=== PATIENT | female | born 1945 | race Caucasian/White ===

== ENCOUNTER 2016-11-17 20:15 | Emergency (ER) | payer MEDICARE ==
[2016-11-17 20:37] VITALS: BP 146/94
[2016-11-17] MEDS ORDERED: ORPHENADRINE CITRATE 30 MG/ML VIAL IM ONE (21:46)
--- NOTE | 2016-11-17 21:47 | ERNOTE ---
Back Pain ER HPI Presenting Symptoms: injury/pain to back, hx chronic back pain Time Seen by Provider: 11/17/16 21:35 Source: patient, family Exam Limitations: no limitations Immunizations: IMMUNIZATION HX Immunizations Up to Date Yes History of Influenza Vaccine No Hx Pneumococcal Vaccination No Allergies/Adverse Reactions: Allergies No Known Allergies Allergy (Unverified 08/11/16 11:42) Home Medications: HOME MEDICATIONS Cyclobenzaprine HCl [Flexeril] 10 mg PO TID PRN 11/17/16 [Last Taken Unknown] traMADol HCL [Ultram] 50 mg PO QID PRN 11/17/16 [Last Taken Unknown] Narrative: Pt was bending and pulling in the garden today for about 30 minutes. about 1 hour later her back began to spasm. She attempted to take flexeril and tramadol but vomited soon after. Timing: Reports: getting worse Quality/Severity: Reports: moderate, severe Location of pain: Reports: lower back, no radiation Activities at Onset: Reports: activity Recent Injury?: Reports: yes Possible Precipitating Factor: Reports: lifting, turning/bending Review of Systems - Review of Systems Constitutional: Present: no symptoms reported EYE: Present: no symptoms reported ENT: Present: no symptoms reported Respiratory: Present: no symptoms reported Cardiology: Present: no symptoms reported Gastrointestinal/Abdominal: Present: no symptoms reported Genitourinary: Present: no symptoms reported Musculoskeletal: Present: See HPI Skin: Absent: rash Neurological: Absent: weakness, numbness, tingling - Patient's Past Medical History Patient History - Medical: No pertinent hx Patient History - Cardiac/Respiratory: No pertinent hx Patient History - Cancer: Ovarian Patient History - Surgical Procedures: Colonoscopy, Hysterectomy Patient History - Other: None - Social History Living Situations: spouse Abuse History: No History of abuse Psych History: No pertinent hx Smoking Status: Former smoker Have you smoked in the past 12 months: No Do you dip or chew tobacco: No Alcohol Use: none Drug Use: none - Immunizations Immunizations Up to Date: Yes Hx Pneumococcal Vaccination: No History of Influenza Vaccine: No Physical Exam - Physical Exam General Appearance: Present: wd/wn, alert, mild distress Ears, Nose, Throat: Present: normal ENT inspection, hearing grossly normal Neck: Present: normal inspection, nontender Respiratory: Present: no respiratory distress, no accessory muscle use Back Exam: Present: no vertebral tenderness, muscle spasm - with tenderness of the muscles Extremity Exam: Present: normal inspection, non-tender, no edema, normal range of motion Neurological Exam: Present: alert, oriented, normal mood/affect, no motor/ sensory deficits Skin Exam: Present: normal color, warm/dry ED Progress - Vital Signs Vital Signs: Vital Signs 11/17/16 20:25 Temperature 37.5 C Pulse Rate 96 Respiratory 16 Rate Blood Pressure 146/94 O2 Sat by Pulse 97 Oximetry - Progress/Reassessment Chief Complaint: Back Pain Progress:: Improved Progress Note-Subjective: 11/17/16 22:44 Less muscle spasm, having some SI area pain. Ordered nubain and zofran. Pt would like to go home as soon as possible. Departure Clinical Impression: Muscle spasm of back Lumbar strain Qualifiers: Encounter type: initial encounter Qualified Code(s): S39.012A - Strain of muscle, fascia and tendon of lower back, initial encounter - Departure Disposition: Home self-care Condition: Good Instructions: Cryotherapy, [id number] Additional Instructions: you may take your regular pain meds and muscle relaxers in 6 hours if needed Referrals: Agueda Pearce DO [Primary Care Provider] -
[2016-11-17] MEDS ORDERED: ORPHENADRINE CITRATE 30 MG/ML VIAL ONE (21:48)
[2016-11-17] MEDS ORDERED: ONDANSETRON HCL/PF 2 MG/ML VIAL IV ONE (22:43)
[2016-11-17] MEDS ORDERED: NALBUPHINE HCL 20 MG/ML AMPUL IV ONE (22:43)
--- OUTSIDE RECORDS SUMMARY | 2016-11-17 22:53 | XMS REPORT | Continuity of Care Document ---
:1945 Author Organization [facility] ([facility]) [place] [address] Phone [phone] Care Team Providers Name Role Phone Provider, No-Primary Care Primary Care Provider Unavailable Source Comments This disclosure is being made pursuant to the Care Everywhere program, applicable federal and state laws, and may not contain all informaitonavailable regarding this patient.[facility] ([facility]) Active Allergies and Adverse Reactions Not on File Current Medications Not on file Active Problems Not on file Social History Tobacco Use Types Packs/Day Years Used Date Never Assessed Plan of Care Health Maintenance Due Date Last Done Comments HCV Screening 1945 Hepatitis B Vaccine (1 of 3 - Primary Series) 1945 Tdap Vaccine 1958 Lipid Disorder Screening 1965 Td Vaccine 1965 Mammogram 1987 Colonoscopy 11/21/1997 Zoster Vaccine 2007 Osteoporosis Screening (DXA Bone Density) 2012 Pneumococcal Vaccine (1 of 2 - PCV13) 2012 Influenza Vaccine: Seasonal (#1) 05/02/2016 Results from Last 3 Months Not on file
[2016-11-17] MEDS ORDERED: ONDANSETRON HCL/PF 2 MG/ML VIAL ONE (23:13)
[2016-11-17] MEDS ORDERED: NALBUPHINE HCL 20 MG/ML AMPUL ONE (23:14)
== END 2016-11-18 00:15 | disposition home or self-care (01) ==
LOC: ER 20:15
DX: S39.012A Strain of muscle, fascia and tendon of lower back, initial encounter (principal); Y93.H2 Activity, gardening and landscaping

== ENCOUNTER 2016-11-29 13:18 | Inpatient (IN) | payer MEDICARE, OTHER ==
[2016-11-29 13:50] LABS: Urine Bilirubin 3 mg/dl (NEGATIVE); Urine Blood 250 /ul (NEGATIVE); Urine Ketone Negative (NEGATIVE); Urine Protein >=300 mg/dL (NEGATIVE); Urine Urobilinogen Normal (NORMAL); Urine pH 5.5 pH (5.0-7.0)
[2016-11-29 13:55] LABS: Urine Appearance Turbid; Urine Bacteria 2+; Urine Color Dark Yellow; Urine Nitrite Positive (NEGATIVE); Urine RBC >50 /hpf (0-5); Urine WBC >50 /hpf (0-5)
[2016-11-29] MEDS ORDERED: NORMAL SALINE 1,000 ML IV PRN (14:52)
[2016-11-29] MEDS ORDERED: HEPARIN SODIUM,PORCINE 5,000 UNITS/ML VIAL SC SCH (15:00)
[2016-11-29] MEDS ORDERED: NORMAL SALINE 1,000 ML IV ONE ×2 (15:16→17:49)
[2016-11-29 15:18] LABS: Hematocrit 36.9 % (37.0-47.0); Hemoglobin 11.5 gm/dL (12.5-16.0); Mean Corpuscular Hgb Conc 31.2 g/dl (32-36); Mean Platelet Volume 9.2 fl (6.0-9.5); Neutrophil # 11.1 K/mm3 (1.3-6.0); Neutrophil % 79.5 % (42-75.0); Platelet Count 709 K/mm3 (150-450); Red Cell Distribution Width 14.5 % (11.5-14.0)
[2016-11-29 15:27] LABS: Anion Gap 20.1 mmol/L (6.8-13.8); BUN/Creatinine Ratio 11.6 (9.0-21.6); Carbon Dioxide 22.3 mmol/L (24-32.6); Estimated Creat Clear 12.6; Potassium 6.4 mmol/L (3.4-4.6)
[2016-11-29 16:01] VITALS: BP 137/59
--- OUTSIDE RECORDS SUMMARY | 2016-11-29 16:06 | XMS REPORT | Continuity of Care Document ---
:1945 Author Organization [facility] ([facility]) [place] [address] Phone [phone] Care Team Providers Name Role Phone Provider, No-Primary Care Primary Care Provider Unavailable Source Comments This disclosure is being made pursuant to the Care Everywhere program, applicable federal and state laws, and may not contain all informaitonavailable regarding this patient.[facility] ([facility]) Active Allergies and Adverse Reactions Not [...]
--- NOTE | 2016-11-29 17:21 | HP ---
Chief Complaint - Chief Complaint Date of Service: 11/29/16 Time of Service: 01:00 Chief Complaint: Back pain History of Present Illness: Patient seen in clinic for ER follow-up on 11.24.2016 with complaints of back pain. No known injury. Further work-up ordered including with UA, lumbar x-ray and lumbar spine MRI ended up revealing multiple large renal calculi and UTI. BMP results returned which showed ARF with a creatinine of 3.8. Patient was admitted for IV antibiotics and IVFs. Approximately 10 minutes after the patient was admitted, I received a call from our radiologist regarding the patient's lumbar spine MRI that she completed earlier today and he states there is a partially visualized right perinephric fluid collection. I discussed the case with Dr. Portillo who is a urologist that comes to our hospital once a week and he states that without a known injury and her large calculi and UTI, it is most likely a collection of pus and a drain needs to be placed by IR. Unfortunately, we do not have IR available at our facility and he recommended transfer to the [facility]. The patient will be transferred to one of the ICUs at the [facility] for further evaluation and management. 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" Patient History - Cardiac/Respiratory: No pertinent hx Patient History - Cancer: Ovarian Patient History - Surgical Procedures: Colonoscopy - 35 years ago, Hysterectomy Patient History - Other: None - Family History Sister Family History - Cardiac/Respiratory: Atrial Fibrillation Mother Family History - Medical: , Other - Parkinson's disease Father Family History - Medical: Family History - Cardiac/Respiratory: Atrial Fibrillation Family History - Cancer: Prostate - Social History Living Situations: home Abuse History: No History of abuse Psych History: No pertinent hx Smoking Status: Former smoker Have you smoked in the past 12 months: No Do you dip or chew tobacco: No Alcohol Use: none Drug Use: none - Immunizations Immunizations Up to Date: No Hx Pneumococcal Vaccination: No History of Influenza Vaccine: No Review Of Systems (GEN) - Review of Systems Generalized/Overall Review: Present: Weakness, Chills, Fatigue. Absent: Fever EENTM: Present: No Symptoms Reported Respiratory: Present: No Symptoms Reported Cardiac: Present: No Symptoms Reported Abdominal: Present: Nausea Genitourinary: Present: Burning, Urgency, Frequency, Hematuria, Dysuria Musculoskeletal: Present: Back Pain Neurological: Present: No Symptoms Reported Skin: Present: No Symptoms Reported Endocrine: Present: No Symptoms Reported Misc: All systems neg except as marked Immunizations: IMMUNIZATION HX Immunizations Up to Date Yes History of Influenza Vaccine No Hx Pneumococcal Vaccination No Allergies/Adverse Reactions: Allergies Allergy/AdvReac Type Severity Reaction Status Date / Time No Known Allergies Allergy Unverified 08/11/16 11:42 Home Medications: HOME MEDICATIONS Cyclobenzaprine HCl [Flexeril] 10 mg PO TID PRN 11/17/16 [Last Taken Unknown] Acetaminophen [Tylenol] 650 mg PO Q4H PRN 11/29/16 [Last Taken Unknown] Duloxetine HCl [Cymbalta] 30 mg PO DAILY 11/29/16 [Last Taken Unknown] Exam - Exam Vital Signs: Vital Signs - Last Taken Temp 36.7 C 11/29/16 14:52 Pulse 97 11/29/16 14:52 Resp 20 11/29/16 14:52 BP 137/59 11/29/16 14:52 Pulse Ox 99 11/29/16 14:52 Constitutional: Present: Alert, Oriented x3, Cooperative, Well developed, Well nourished, Acute distress - Secondary to back pain ENT Exam: Present: hearing grossly normal, dry mucous membranes Eye Exam: bilateral eye: normal inspection, PERRL, EOMI Back Exam: Present: normal inspection, no vertebral tenderness, CVA tenderness ( R) - CVA tenderness R>L, CVA tenderness (L), muscle spasm - Lumbar and lower thoracic paraspinal muscle spasm present Respiratory: Present: lungs clear, normal breath sounds, no respiratory distress , no accessory muscle use Cardiovascular/Chest: Present: regular rate, rhythm, no edema Abdomen: Present: soft, nondistended, no rebound tenderness, CVA tenderness. Absent: guarding, rigidity Extremity: Present: normal range of motion, normal inspection, no pedal edema Skin Exam: Present: normal color, warm/dry Neurologic: Present: no motor/sensory deficits, alert, normal mood/affect, oriented x 3 Appearance: Present: appropriate appearance, appropriate insight, neat, no memory impairment Eye contact: Present: cooperative, good eye contact, normal speech Thoughts: Present: normal thought pattern, no apparent hallucination Diagnostic Studies: Abnormal Lab Results 11/29/16 11/29/16 11/29/16 Range/Units 12:45 15:10 15:10 WBC 14.0 H (4.0-10.5) K/mm3 RBC 4.10 L (4.2-5.4) M/mm3 Hgb 11.5 L (12.5-16.0) gm/dL Hct 36.9 L (37.0-47.0) % MCHC 31.2 L (32-36) g/dl RDW 14.5 H (11.5-14.0) % Plt Count 709 H (150-450) K/mm3 Immature Gran % (Auto) 1.10 H (0.001-0.429) % Immature Gran # (Auto) 0.15 H (0.000-0.0310) K/mm3 Neutrophils % 79.5 H (42-75.0) % Lymphocytes % 14.2 L (20-51) % Neutrophils # 11.1 H (1.3-6.0) K/mm3 Potassium 6.4 H D (3.4-4.6) mmol/L Carbon Dioxide 22.3 L (24-32.6) mmol/L Anion Gap 20.1 H (6.8-13.8) mmol/L BUN 44 H (3-23) mg/dL Creatinine 3.80 H D (0.4-1.4) mg/dL Est GFR (Non-Af Amer) 13 L D (60-130) mL/min Random Glucose 148 H (70-110) mg/dL Urine Protein >=300 H (NEGATIVE) mg/dL Urine Blood 250 H (NEGATIVE) /ul Urine Nitrate Positive H (NEGATIVE) Urine Bilirubin 3 H (NEGATIVE) mg/dl Prot Sulfosalicylic Acd 4+ H (0) mg/dL Ur Leukocyte Esterase 500 H (NEGATIVE) /ul Urine RBC >50 H (0-5) /hpf Urine WBC >50 H (0-5) /hpf Ur Epithelial Cells 5-10 H (0-5) /hpf Urine Bacteria 2+ H (NONE) Laboratory Results WBC 14.0 K/mm3 (4.0-10.5) H 11/29/16 15:10 RBC 4.10 M/mm3 (4.2-5.4) L 11/29/16 15:10 Hgb 11.5 gm/dL (12.5-16.0) L 11/29/16 15:10 Hct 36.9 % (37.0-47.0) L 11/29/16 15:10 MCV 90.0 fl (78-100) 11/29/16 15:10 MCH 28.0 pg (27-31) 11/29/16 15:10 MCHC 31.2 g/dl (32-36) L 11/29/16 15:10 RDW 14.5 % (11.5-14.0) H 11/29/16 15:10 Plt Count 709 K/mm3 (150-450) H 11/29/16 15:10 MPV 9.2 fl (6.0-9.5) 11/29/16 15:10 Immature Gran % (Auto) 1.10 % (0.001-0.429) H 11/29/16 15:10 Immature Gran # (Auto) 0.15 K/mm3 (0.000-0.0310) H 11/29/16 15:10 Neutrophils % 79.5 % (42-75.0) H 11/29/16 15:10 Lymphocytes % 14.2 % (20-51) L 11/29/16 15:10 Monocytes % 4.5 % (0.0-9) 11/29/16 15:10 Eosinophils % 0.4 % (0.0-3.0) 11/29/16 15:10 Basophils % 0.3 % (0.0-1.0) 11/29/16 15:10 Nucleated RBC % 0.0 k/mm3 (0-1) 11/29/16 15:10 Neutrophils # 11.1 K/mm3 (1.3-6.0) H 11/29/16 15:10 Lymphocytes # 2.0 k/mm3 (1.5-3.5) 11/29/16 15:10 Monocytes # 0.6 k/mm3 (0.0-1.0) 11/29/16 15:10 Eosinophils # 0.1 k/mm3 (0.0-0.7) 11/29/16 15:10 Absolute Basophils 0.0 k/mm3 (0.0-0.1) 11/29/16 15:10 Sodium 136 mmol/L (132-142) 11/29/16 15:10 Plasma Sodium 137 mmol/L (130-142) 11/29/16 15:10 Potassium 6.4 mmol/L (3.4-4.6) H D 11/29/16 15:10 Chloride 100 mmol/L (97-106) 11/29/16 15:10 Carbon Dioxide 22.3 mmol/L (24-32.6) L 11/29/16 15:10 Anion Gap 20.1 mmol/L (6.8-13.8) H 11/29/16 15:10 BUN 44 mg/dL (3-23) H 11/29/16 15:10 Creatinine 3.80 mg/dL (0.4-1.4) H D 11/29/16 15:10 Est GFR (Non-Af Amer) 13 mL/min (60-130) L D 11/29/16 15:10 BUN/Creatinine Ratio 11.6 (9.0-21.6) 11/29/16 15:10 Random Glucose 148 mg/dL (70-110) H 11/29/16 15:10 Calcium 10.0 mg/dL (7.9-10.9) 11/29/16 15:10 Urine Color Dark yellow 11/29/16 12:45 Urine Appearance Turbid 11/29/16 12:45 Urine pH 5.5 pH (5.0-7.0) 11/29/16 12:45 Ur Specific [place] 1.020 SP.GR. (1.005-1.010) 11/29/16 12:45 Urine Protein >=300 mg/dL (NEGATIVE) H 11/29/16 12:45 Urine Glucose (UA) Negative mg/dL (NEGATIVE) 11/29/16 12:45 Urine Ketones Negative mg/dL (NEGATIVE) 11/29/16 12:45 Urine Blood 250 /ul (NEGATIVE) H 11/29/16 12:45 Urine Nitrate Positive (NEGATIVE) H 11/29/16 12:45 Urine Bilirubin 3 mg/dl (NEGATIVE) H 11/29/16 12:45 Urine Ictotest Negative (NEGATIVE) 11/29/16 12:45 Prot Sulfosalicylic Acd 4+ mg/dL (0) H 11/29/16 12:45 Urine Urobilinogen Normal EU/dl (NORMAL) 11/29/16 12:45 Ur Leukocyte Esterase 500 /ul (NEGATIVE) H 11/29/16 12:45 Urine RBC >50 /hpf (0-5) H 11/29/16 12:45 Urine WBC >50 /hpf (0-5) H 11/29/16 12:45 Ur Epithelial Cells 5-10 /hpf (0-5) H 11/29/16 12:45 Urine Bacteria 2+ (NONE) H 11/29/16 12:45 Urine Culture Comments Culture to follow 11/29/16 12:45 Assessment/Plan - Narrative Narrative: Transfer to outside facility [facility] for further evaluation and treatment by urology and IR for drain placement. Continue aggressive IVF hydration. Continue IV antibiotics. Calcium gluconate, insulin and D50 given for hyperkalemia. Patient hemodynamically stable for transfer. - Assessment/Plan (1) ARF (acute renal failure) Problem: Acute (2) UTI (urinary tract infection) Problem: Acute (3) Pyelonephritis Problem: Acute (4) Perinephric fluid collection Problem: Acute (5) Leukocytosis Problem: Acute (6) Hyperkalemia Problem: Acute (7) Renal calculi Problem: Acute
[2016-11-29] MEDS ORDERED: CALCIUM GLUCONATE 4.65 MEQ/10 ML VIAL IV ONE (17:52)
[2016-11-29] MEDS ORDERED: DEXTROSE 50%-WATER 50 ML SYRG IV ONE (17:54)
[2016-11-29] MEDS ORDERED: INSULIN REGULAR, HUMAN 100 UNITS/ML VIAL IV ONE (17:54)
--- NOTE | 2016-11-29 18:50 | DS ---
Transfer Discharge Summary - Diagnosis(s)/Problems (1) ARF (acute renal failure) Problem: Acute (2) UTI (urinary tract infection) Problem: Acute (3) Pyelonephritis Problem: Acute (4) Perinephric fluid collection Problem: Acute (5) Leukocytosis Problem: Acute (6) Hyperkalemia Problem: Acute (7) Renal calculi Problem: Acute - Course Description of Stay: Please see admission H&P for details. Patient will be transferred to the [facility] for further evaluation and management. Procedures Performed: none - Results and Findings Results and Findings: Laboratory Results - last 24 hr 11/29/16 11/29/16 11/29/16 12:45 15:10 15:10 WBC 14.0 H RBC 4.10 L Hgb 11.5 L Hct 36.9 L MCV 90.0 MCH 28.0 MCHC 31.2 L RDW 14.5 H Plt Count 709 H MPV 9.2 Immature Gran % (Auto) 1.10 H Immature Gran # (Auto) 0.15 H Neutrophils % 79.5 H Lymphocytes % 14.2 L Monocytes % 4.5 Eosinophils % 0.4 Basophils % 0.3 Nucleated RBC % 0.0 Neutrophils # 11.1 H Lymphocytes # 2.0 Monocytes # 0.6 Eosinophils # 0.1 Absolute Basophils 0.0 Sodium 136 Plasma Sodium 137 Potassium 6.4 H D Chloride 100 Carbon Dioxide 22.3 L Anion Gap 20.1 H BUN 44 H Creatinine 3.80 H D Est GFR (Non-Af Amer) 13 L D BUN/Creatinine Ratio 11.6 Random Glucose 148 H Calcium 10.0 Urine Color Dark yellow Urine Appearance Turbid Urine pH 5.5 Ur Specific [place] 1.020 Urine Protein >=300 H Urine Glucose (UA) Negative Urine Ketones Negative Urine Blood 250 H Urine Nitrate Positive H Urine Bilirubin 3 H Urine Ictotest Negative Prot Sulfosalicylic Acd 4+ H Urine Urobilinogen Normal Ur Leukocyte Esterase 500 H Urine RBC >50 H Urine WBC >50 H Ur Epithelial Cells 5-10 H Urine Bacteria 2+ H Urine Culture Comments Culture to follow - Medications Medications: Active Medications Ceftriaxone Sodium 2,000 mg/ (Dextrose/Water) 100 mls @ 200 mls/hr IV Q24H IVON PRN Reason: Protocol Stop: 12/29/16 15:16 Last Admin: 11/29/16 16:47 Dose: 200 mls/hr Discontinued Medications Heparin Sodium (Porcine) (Heparin Sodium) 5,000 units SC Q12H IVON Stop: 12/29/16 15:01 Last Admin: 11/29/16 16:31 Dose: Not Given Sodium Chloride (Sodium Chloride 0.9%) 1,000 mls @ 999 mls/hr IV .Q1H1M ONE Stop: 11/29/16 16:16 Last Admin: 11/29/16 15:55 Dose: 999 mls/hr Sodium Chloride (Sodium Chloride 0.9%) 1,000 mls @ 999 mls/hr IV .Q1H1M ONE Stop: 11/29/16 18:49 Last Admin: 11/29/16 18:08 Dose: 999 mls/hr - Disposition Disposition: [facility] Condition: Fair Discharge Date: 11/29/16 Discharge Time: 18:50
[2016-11-29] MEDS ORDERED: NORMAL SALINE IV SCH ×2 (19:00→19:15)
[2016-11-29] MEDS ORDERED: CALCIUM GLUCONATE IV SCH ×2 (19:00→19:15)
== END 2016-11-29 19:30 | disposition short-term general hospital (02) | DRG 683 ==
LOC: LAB 13:18 → MS 14:51
PROVIDERS: ADMIT Internal Medicine; ATTEND Internal Medicine
DX: N17.8 Other acute kidney failure (principal); N39.0 Urinary tract infection, site not specified; N20.0 Calculus of kidney; R39.89 Other symptoms and signs involving the genitourinary system; E87.5 Hyperkalemia; D72.829 Elevated white blood cell count, unspecified; Z87.891 Personal history of nicotine dependence; Z85.43 Personal history of malignant neoplasm of ovary

== ENCOUNTER 2017-03-10 10:09 | Day surgery (SDC) | payer MEDICARE, OTHER ==
[~2017-03-10 10:09] MED LIST: RINGERS SOLUTION,LACTATED 1,000 ML IV PRN
--- OUTSIDE RECORDS SUMMARY | 2017-03-10 10:13 | XMS REPORT | Continuity of Care Document ---
:1945 Author Organization [facility] ([facility]) Address [address] [place] [address] Phone [phone] Care Team Providers Name Role Phone Agueda Pearce Primary Care Provider [phone] Source Comments This disclosure is being made pursuant to the Care Everywhere program, applicable federal and state laws, and may not contain all informaitonavailable regarding this patient.[facility] ([facility]) Active Allergies and Adverse Reactions No Known Allergies Current Medications Prescription Sig. Disp. Refills Start Date End Date Status DULoxetine 30 mg XR Take 30 mg by mouth Active capsule daily. acetaminophen 325 mg Take 650 mg by Active tablet mouth every 4 hours as needed. sodium chloride 0.9 % 10 mL daily. Into 1000 mL 1 12/02/2016 Active injection syringe each nephrostomy tube daily sodium chloride 0.9 % Flush each catheter 300 mL 11 12/16/2016 Active injection syringe with 10 ml normal saline 3 times weekly, push only. oxyCODONE-acetaminoph Take 1-2 tablets by 40 tablet 0 01/19/2017 Active en 5-325 mg per mouth every 4 hours tablet as needed. Do NOT exceed 4000 mg of acetaminophen per 24 hours. ondansetron 4 mg Take 2 tablets (8 30 tablet 1 01/20/2017 Active disintegrating tablet mg total) by mouth every 8 hours as needed for Nausea/Vomiting. Active Problems Problem Noted Date Nephrolithiasis 01/19/2017 Kidney stone 01/18/2017 Sepsis 11/29/2016 Most Recent Encounters Date Type Specialty Providers Description 03/03/2017 Telephone Urology Fish Garcia, Chief Comp: Results 03/02/2017 Surgery Radiology Radiologist, Canceled IR Rad Invasive NEPHROSTOMY TUBE CHECK & CHANGE 01/27/2017 Hospital Radiology Fish Garcia, Chief Comp: Patient Encounter MD Reported Reason For Visit 01/27/2017 Office Visit Urology Tye, Dx: Nephrolithiasis Santy Don MD (Primary Dx) Fish Garcia MD 01/23/2017 Nurse Triage Care Coordination Shanti Menjivar Chief Comp: IP Francine Don RN Follow-up Call 01/18/2017 Surgery Radiology Andrés Knight Ir Nephrostomy Tube T, Placement Bilateral 01/18/2017 Surgery Urology Fish Garcia, PERCUTANEOUS NEPHROSTOLITHOTOMY (GT 75MIN) 01/10/2017 Telephone Urology Evelyn Narayan PA-C 01/09/2017 Anesthesia Event Urology Beatriz Pop RN 01/04/2017 Orders/Notes Urology Evelyn Narayan PA-C 01/04/2017 Telephone Urology Evelyn Narayan Chief Comp: Request for A, PA-C Prescription 01/04/2017 Orders/Notes Urology Evelyn Narayan Dx: Acute cystitis A, PA-C without hematuria (Primary Dx) 01/02/2017 Telephone Internal Medicine Mona Gilliam, - Primary RACK WASHER 01/02/2017 Orders/Notes Internal Medicine Mona Gilliam, Dx: Low hemoglobin - Primary RACK WASHER (Primary Dx) 12/30/2016 Office Visit Pathology Evelyn Narayan Chief Comp: Patient A, PA-C Reported Reason For Lab Services, Visit Irl 12/30/2016 Office Visit Internal Medicine Torres Salazar, Chief Comp: Patient - Primary MD Reported Reason For Mona Gilliam, Visit RACK WASHER 12/30/2016 Hospital Radiology Brian Croft, Dx: Sepsis, due to Encounter MD unspecified organism 12/30/2016 Office Visit Urology Fish Garcia, Dx: Hx: UTI (urinary MD tract infection) Evelyn Narayan (Primary Dx) A, PA-C 12/16/2016 Telephone Radiology Irma Thomas Chief Comp: Patient L, RN Concern 12/16/2016 Orders/Notes Radiology Arpit Alonso Dx: Flush (Primary Dx) C, PA-C 12/16/2016 Telephone Radiology Wendi Edwards Chief Comp: Patient L, RN Concern 12/12/2016 Telephone Radiology Jason Chief Comp: Follow-up RONNA Bardales 12/10/2016 Telephone Radiology Arpit Alonso Chief Comp: Advice Only ABI Fields 12/10/2016 Telephone Patient Services Magdalena Tran Chief Comp: Advice Only RONNA Jones 12/09/2016 Telephone Radiology Arpit Alonso Chief Comp: Advice Only ABI Fields Social History Tobacco Use Types Packs/Day Years Used Date Former Smoker Cigarettes 0.25 15 Quit: 10/02/1991 Smokeless Tobacco: Never Used Tobacco Cessation:Counseling Given: No Comments: Alcohol Use Drinks/Week oz/Week Comments No 0 Standard drinks or equivalent 0.0 Last Filed Vital Signs Vital Sign Reading Time Taken Blood Pressure 123/80 01/27/2017 2:58 PM CDT Pulse 70 01/27/2017 2:58 PM CDT Temperature 36.2 C (97.2 F) 01/27/2017 2:58 PM CDT Respiratory Rate 16 01/20/2017 10:54 AM CDT Height 1.651 m (5' 5") 01/18/2017 8:00 PM CDT Weight 80.74 kg (178 lb) 01/18/2017 8:00 PM CDT Body Mass Index 29.62 01/18/2017 8:00 PM CDT Oxygen Saturation 91% 01/20/2017 8:00 AM CDT Plan of Care Date Type Specialty Providers Description 04/21/2017 Appointment Urology Fish Garcia MD Chief Comp: Patient [address] [facility] [place] [address] Visit [phone] (Fax) 04/21/2017 Appointment Internal Medicine - Torres Salazar MD [address] [place] [address] [phone] (Fax) Chief Comp: Patient Primary Mona Gilliam ARNP [address] [place] [address] [phone] (Fax) Reported Reason For Visit Health Maintenance Due Date Last Done Comments HCV Screening 1945 Hepatitis B Vaccine (1 of 3 - Primary Series) 1945 Tdap Vaccine 1958 Lipid Disorder Screening 1965 Td Vaccine 1965 Mammogram 1987 Colonoscopy 11/21/1997 Zoster Vaccine 2007 Osteoporosis Screening (DXA Bone Density) 2012 Pneumococcal Vaccine (1 of 2 - PCV13) 2012 Influenza Vaccine: Seasonal (Season Ended) 2017 Procedures from Last 3 Months Procedure Name Priority Date/Time Associated Comments Diagnosis OR CASE Routine 01/26/2017 12:07 Kidney stone Results for this PM CDT procedure are in the results section. 01/18/2017 10:52 Kidney stone AM CDT PERCUTANEOUS 01/18/2017 10:52 Kidney stone NEPHROSTOLITHOTOMY (GT AM CDT 75MIN) 01/18/2017 10:52 Kidney stone AM CDT Results from Last 3 Months REQUEST FOR STONE ANALYSIS AT [facility] (01/27/2017 4:29 PM) Component Value Range Request for Stone Analysis at [facility] Comment: Laboratory Order for Stone Analysis at [facility] has been received in [facility] requisition has been completed and faxed to [facility] on 01/27/2017. Specimen Urine FL< 1 HOUR (DONE IN UROLOGY CLINIC) (01/27/2017 4:00 PM)Only the most recent of2 resultswithin the time period is included. OR CASE (01/26/2017 12:07 PM) Narrative Fish Garcia MD 01/26/2017 12:07 PM Post-Op Procedure Note Operation/Procedure: Bilateral Percutaneous Nephrolithotripsy >2cm on right, and <2 cm on left Bilateral Antegrade Nephrostograms and interpretation Renal drainage tube placement Removal of nephrostomy tube under fluroscopy General Information: Date: 01/18/17 Time: 1052 Location: UROLOGY OR OR Room: UROLOGY OR 1 Service: Urology Log ID: [id number] Surgeon: Surgeon(s) and Role: * Fish Garcia MD - Primary * Eder Love MD - Resident - Assisting Staff Information: Circulating Nurse: Selena Mendoza RN; Jennyfer Roberson RN Systems Integration Manager- Scrub: Johnny Wise Anesthesia: General Findings: Bilateral nephrolithiasis, right side approximately 3 cm, left side 1 cm largest stone Blood Loss: 400* ml Tourniquet Time: * No tourniquets in log * Implants: * No implants in log * Specimens: ID Type Source Tests Collected by Time Destination 1 : Right Renal Stone Tissue fresh Fish Garcia MD 01/18/2017 1421 Pathology 1 : Right renal stone culture Aerobic Anaerobic Culture Fish Garcia MD 01/18/2017 145 Microbiology Complications: None, patient tolerated the procedure well Condition: Stable Operative Report Completion Indications: Payton Kothari is a 71 y.o. female with bilateral nephrolithiasis with subsequent JUAN, and Klebsiella pyelonephritis s/p bilateral percutaneous nephrostomy tube placement to undergo percutaneous nephrostolithotomy today. She has taken ciprofloxacin, linezolid, and fluconazole as prescribed. Procedure Details: After informed consent was obtained the patient was brought to the operating room and general endotracheal anesthesia was induced. Antibiotic therapy was initiated prior to the procedure. The patient and procedure were properly identified in a time-out. A Amaro catheter was advanced into the bladder and the balloon inflated with 10 cc of water. The patient was then placed in the prone position on the operating room table with all pressure points adequately padded. The right percutaneous nephrostomy tube and surrounding skin were prepped and draped in standard sterile fashion. The percutaneous nephrostomy tube was used to advance a super-stiff wire into the renal collecting system and down into the bladder. The percutaneous nephrostomy tube was removed and the skin incised over the wire. Using a 8-10 dilator, an Amplatz stiff guidewire was advanced alongside the other wire. The dilator was withdrawn to the edge of the collecting system and an antegrade nephrostogram was performed by injected contrast through the dilator with results as below. The super-stiff guidewire was affixed to the drapes as a safety wire. The dilating balloon was advanced over the guidewire and the tract into the collecting system was dilated up to 30 atmospheres under fluoroscopic guidance using contrast to inflate the balloon. A sheath was advanced over the balloon into the collecting system. The dilating balloon was withdrawn and a rigid nephroscope was advanced through the sheath into the renal pelvis. A survey of the collecting system revealed a large renal stone measuring approximately 3 cm in the renal pelvis. Using the ultrasound probe, the stone was fragmented and the pieces suctioned. Using a combination of the rigid nephroscope and flexible nephroscope with a stone basket and the ultrasound probe, the remaining visible fragments were fragmented and removed from the collecting system and ureter. After removal of all visible stone, a 22 [place] Ke[place]-tip catheter was then advanced into the renal pelvis over the remaining wire and its position in the pelvis confirmed using fluoroscopy. The access sheath was then cut and removed. 3 cc of sterile sale were used to inflate the balloon of the Keween[place]-tip catheter. The percutaneous catheter was then sutured in place and a sterile dressing was applied. Under fluorsoscopy existing nephrostomy tube was removed. Tube was cut to break suture, and then under live fluro imaging it was removed and the draining catheter was not disturbed. The dressing's were then taken down and attention was then turned to the left, patient was then reprepped and draped and the percutaneous nephrostomy tube and surrounding skin were prepped and draped in standard sterile fashion. The percutaneous nephrostomy tube was used to advance a super-stiff wire into the renal collecting system and down into the bladder. The percutaneous nephrostomy tube was removed and the skin incised over the wire. Using an 8-10 thai dilator an Amplatz stiff guidewire was advanced alongside the other wire. The dilator was withdrawn to the edge of the collecting system and an antegrade nephrostogram was performed by injected contrast through the 10 thai sheath with results as below. The super-stiff guidewire was affixed to the drapes as a safety wire. The dilating balloon was advanced over the guidewire and the tract into the collecting system was dilated up to 30 atmospheres under fluoroscopic guidance using contrast to inflate the balloon. A sheath was advanced over the balloon into the collecting system. The dilating balloon was withdrawn and a rigid nephroscope was advanced through the sheath into the renal pelvis. A survey of the collecting system revealed a 1 cm renal stone. Using the ultrasound probe, the stone was fragmented and the pieces suctioned. Using a combination of the rigid nephroscope and flexible nephroscope with a stone basket and the ultrasound probe, the remaining visible fragments were fragmented and removed from the collecting system and ureter. After removal of all visible stone, a 22 [place]-tip catheter was then advanced into the renal pelvis over the remaining wire and its position in the pelvis confirmed using fluoroscopy. The access sheath was then cut and removed. 3 cc of sterile sale were used to inflate the balloon of the Keween[place]-tip catheter. The percutaneous catheter was then sutured in place and a sterile dressing was applied. The patient tolerated the procedure well. There were no immediate complications. The patient was brought to the Post-Anesthesia Care Unit in stable condition Dr. Garcia and I independently reviewed the images and interpreted them as below Radiology Interpretation: Right Antegrade Nephrostogram: No extravasation of contrast, normal right ureter with passage of contrast down to the bladder. No filling defects. Left Antegrade Nephrostogram: No extravasation of contrast, normal left ureter without extravasation of contrast. Plan -Admit to the floor, 3RC -Cipro, linezolid, and fluconazole overnight -Likely discharge on three days of abx/antifungals -Nephrostomy and amaro to drainage overnight -Cap tube in the AM, remove Amaro -CT scan in the AM, Labs in the AM -Tube plan following CT Attending Attestation: I was present for and participated in the entire procedure. I have reviewed the images obtained during the procedure and agree with the findings as listed above. Fish Garcai MD Dyslexia Teacher Director of Minimally Invasive Surgery and Endourology Department of Urology Eder Love MD BASIC METABOLIC PANEL W/ CALCIUM (CHEM 8) (01/20/2017 8:06 AM)Only the most recent of3 resultswithin the time period is included. Component Value Range Sodium 140 135-145 mEq/L Potassium 4.5 3.5-5.0 mEq/L Chloride 106 95-107 mEq/L CO2 20(L) 22-29 mEq/L BUN 26(H) 10-20 mg/dL Creatinine 2.1(H)Comment: 0.5-1.0 mg/dL Creatinine switched to enzymatic method on 02/08/2011.GFR equation switched to IDMS-traceable MDRD equation on 02/08/2011. Calculated GFR values are not valid in clinical settings where serum creatinine is changing. Glucose 106(H)Comment: 65-99 mg/dL The Expert Committee on the Diagnosis and Classification of Diabetes has defined impaired fasting glucose as greater than or equal to 100 mg/dL but less than 126 mg/dL.(Diabetes Care 28 (Suppl 1)S41,2005) Calcium 8.5 8.5-10.5 mg/dL Anion Gap 14 mEq/L Calculated GFR 23(L) >60 mL/min/1.[address] ABDOMEN& PELVIS WO CONTRAST ([id number]) (01/19/2017 11:54 AM)Only the most recent of2 resultswithin the time period is included. Impressions Impression: 1. No residual stone burden in the right kidney. 2. Numerous small nonobstructing residual stones in the left kidney but stone burden has decreased since the prior exam. 3. Small nonobstructing distal left ureter stone. 4. Bilateral nephrostomy access catheters in place with expected postprocedural changes. 5. Moderate bilateral hydronephrosis with mild bilateral hydroureter. Narrative Procedure: CT ABDOMEN & PELVIS WO CONTRAST ([id number]) Clinical Indication: Evaluate residual stone after bilateral PCNL. History of kidney stones. Technique: CT exam of the abdomen and pelvis is performed without IV contrast. Comparison: CT abdomen and pelvis 12/30/2016. Interventional procedure 01/18/2017. Findings: The absence of IV contrast limits assessment of the solid organs, bowel, and vascular structures. Lower chest: Bibasilar atelectasis. Liver: Imaged liver normal. Bile ducts: Not dilated. Gallbladder: Vicarious excretion of contrast in the gallbladder. Pancreas: Fatty atrophy. Spleen: Calcified granulomas. 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 Adrenal glands: Normal Kidneys: Bilateral nephrostomy access catheters in place. Small bilateral retroperitoneal free fluid. Moderate bilateral hydronephrosis with retained contrast in the dilated renal collecting systems bilaterally. Iatrogenic induced air within the collecting systems bilaterally. At least 7 nonobstructing left renal stones remain, measuring between 1 and 2 mm. No definite right-sided stones are visualized. No definite stones seen on the right. Ureters: 2 mm stone in the distal left ureter at the level of the pelvic brim. No stones in the right ureter. Ureters are mildly dilated. Bladder: Air in the bladder likely iatrogenic. Aorta: Nonaneurysmal. Calcific atherosclerotic disease. Retroperitoneum: Small bilateral perinephric free fluid. No enlarged lymphadenopathy. Peritoneum: No ascites and no free air. Mesentery: Normal Stomach: Not distended. Small bowel: Not distended. Colon: Mild diverticulosis without diverticulitis. Appendix: Normal. Extraperitoneal pelvis: No lymphadenopathy. Uterus: Surgically absent Ovaries: No adnexal masses Abdominal wall: Normal Bones: Bilateral S2 sacral cysts. No bony destructive lesions. Procedure Note Henrique, Incoming Imaging Results - Agnieszka Jan 19, 2017 2:31 PM CDT Procedure: CT ABDOMEN & PELVIS WO CONTRAST ([id number]) Clinical Indication: Evaluate residual stone after bilateral PCNL. History of kidney stones. Technique: CT exam of the abdomen and pelvis is performed without IV contrast. Comparison: CT abdomen and pelvis 12/30/2016. Interventional procedure 01/18/2017. Findings: The absence of IV contrast limits assessment of the solid organs, bowel, and vascular structures. Lower chest: Bibasilar atelectasis. Liver: Imaged liver normal. Bile ducts: Not dilated. Gallbladder: Vicarious excretion of contrast in the gallbladder. Pancreas: Fatty atrophy. Spleen: Calcified granulomas. 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 Adrenal glands: Normal Kidneys: Bilateral nephrostomy access catheters in place. Small bilateral retroperitoneal free fluid. Moderate bilateral hydronephrosis with retained contrast in the dilated renal collecting systems bilaterally. Iatrogenic induced air within the collecting systems bilaterally. At least 7 nonobstructing left renal stones remain, measuring between 1 and 2 mm. No definite right-sided stones are visualized. No definite stones seen on the right. Ureters: 2 mm stone in the distal left ureter at the level of the pelvic brim. No stones in the right ureter. Ureters are mildly dilated. Bladder: Air in the bladder likely iatrogenic. Aorta: Nonaneurysmal. Calcific atherosclerotic disease. Retroperitoneum: Small bilateral perinephric free fluid. No enlarged lymphadenopathy. Peritoneum: No ascites and no free air. Mesentery: Normal Stomach: Not distended. Small bowel: Not distended. Colon: Mild diverticulosis without diverticulitis. Appendix: Normal. Extraperitoneal pelvis: No lymphadenopathy. Uterus: Surgically absent Ovaries: No adnexal masses Abdominal wall: Normal Bones: Bilateral S2 sacral cysts. No bony destructive lesions. IMPRESSION Impression: 1. No residual stone burden in the right kidney. 2. Numerous small nonobstructing residual stones in the left kidney but stone burden has decreased since the prior exam. 3. Small nonobstructing distal left ureter stone. 4. Bilateral nephrostomy access catheters in place with expected postprocedural changes. 5. Moderate bilateral hydronephrosis with mild bilateral hydroureter. CBC (COMPLETE BLOOD COUNT) (01/19/2017 7:08 AM)Only the most recent of2 resultswithin the time period is included. Component Value Range WBC Count 15.5(H) 3.7-10.5 K/MM3 RBC Count 3.17(L) 4.00-5.20 M/MM3 Hemoglobin 9.2(L) 11.9-15.5 g/dL Hematocrit 29(L) 35-47 % MCV (Mean Corpuscular Volume) 91 82-99 FL MCH (Mean Corpuscular Hemoglobin) 29 25-35 PG MCHC (Mean Corpuscular Hemoglobin Concentration) 32 32-36 % Platelet Count 156 150-400 K/MM3 MPV (Mean Platelet Volume) 9.9 9.4-12.3 FL RBC Dist Width-STD 52.5(H) 36.4-46.3 FL RBC Distrib Width 15.7(H) 9.0-14.5 % Nucleated RBC 0 /100 WBC Specimen Whole Blood HEMATOCRIT (01/18/2017 6:57 PM) Component Value Range Hematocrit 32(L) 35-47 % Specimen Whole Blood HEMOGLOBIN (01/18/2017 6:57 PM) Component Value Range Hemoglobin 9.9(L) 11.9-15.5 g/dL Specimen Whole Blood AEROBIC CULTURE, ROUTINE (01/18/2017 4:48 PM) Component Value Range Culture Moderate Vancomycin Resistant Enterococcus faecium(A)Comment: Synergy for gentamicin when combined with ampicillin or vancomycin Synergy for streptomycin when combined with ampicillin or vancomycin. Gram Stain No organisms or PMNs observed Specimen Culture - Tissue, specify Narrative Identification performed by MALDI-TOF mass spectrometry (MS).The performance characteristics of MALDI-TOF MS were determined by the [facility].It has not been cleared orApproved by the FDA. The FDA has determined that such clearance or approval is not necessary.This test is for clinical purposes. It should not be regarded as investigational or for research.The laboratory is certified under the Clinical Laboratory Improvement Amendments of 1988 (CLIA) as qualified to perform high complexity clinical laboratory testing. Organism Antibiotic Method Susceptibility Vancomycin Resistant Enterococcus AMPICILLIN >=32: Resistant faecium Vancomycin Resistant Enterococcus DAPTOMYCIN 2: Susceptible faecium Vancomycin Resistant Enterococcus GENTAMICIN HIGH LEVEL Susceptible faecium Vancomycin Resistant Enterococcus LINEZOLID 2: Susceptible faecium Vancomycin Resistant Enterococcus STREPTOMYCIN HIGH LEVEL Susceptible faecium Vancomycin Resistant Enterococcus VANCOMYCIN >=32: Resistant faecium STONE ANALYSIS (01/18/2017 4:37 PM) Component Value Range Calculi Mass 33 mg Calculi Number Numerous Calculi Size (mm) 1 to 4 mm Calculi Description See NoteComment: Specimen received bloody, not the preferred dry state.Bloody specimens often delay analysis. Specimen consists of numerous, small, brown/bravo, irregular calculi fragments. Calculi Composition See NoteComment: Calculi composed primarily of calcium oxalate monohydrate. INTERPRETIVE INFORMATION: Calculi (Stone) analysis Calculi are the products of physiological processes that yield crystalline compounds in a matrix of biological compounds and blood.Matrix components are not reported.The clinically significant crystalline components identified in calculi specimens are reported.Gross description may not be consistent with composition determined by FTIR analysis. Performed by [facility], [address] [place] [phone] [email or web address] Agent, Mauro Brewer MD, Lab. Director Specimen Calculus Narrative Specimen Source: Specimen Start Date: IR NEPHROSTOMY TUBE PLACEMENT BILATERAL (01/18/2017 12:09 PM) Impressions IMPRESSION: 1. Right: successful placement of 5 Fr JB1 catheter through inferior calyx with tip in the bladder. The existing PCN is in the upper pole calyx. 2. Left: successful placement of 5 Fr JB1 catheter in the inferior calyx with tip in the renal pelvis. Could not pass the catheter beyond the pelvic stone. Another JB1 catheter was placed through the middle calyx passes over the pelvic stone with tip in the bladder. The existing PCN within the renal pelvis through the upper calyx. Findings were discussed with Dr. Love via pager [phone] on 01/18/17. Narrative PROCEDURE: Bilateral percutaneous nephrostomy tube placement for PCNL access. CLINICAL INDICATION: 71 year old with hx of bilateral staghorn stones, right abscess vs subcapsular hematoma. Status post bilateral PCNs by Interventional Radiology on 11/30/16. Here for PCN placement for PCNL access. ACCESS: bilateral flank VESSELS INJECTED: None SPECIMENS COLLECTED: None CONTRAST:80 ml Isovue 370 in the collecting systems ANESTHESIA: 1% lidocaine MEDICATIONS:6 mg Versed IV, 300 mcg Fentanyl IV, 1 g Rocephin IV. PHYSICIANS: Dr. Knight DATA OFFICER: Dr. Sorto COMPLICATIONS:None immediate BLOOD LOSS:Minimal FLUORO TIME:31.7 min FLUORO DOSE:1058 mGy SEDATION START TIME: 1048 SEDATION STOP TIME: 1200 PROCEDURE: Informed consent was obtained after a detailed discussion outlining the risks, benefits, and alternatives to the procedure and after all of the patient's questions were answered. The patient was brought to the interventional suite and placed in the prone position. A formal timeout was performed. Both flanks were prepped and draped in usual sterile fashion. Right kidney: Contrast was injected through the existing PCN and nephrostogram was performed. This revealed nondilated collecting system and multiple stones. The PCN is intercostal course and concerning for transpleural placement. Existing PCN is in the superior calyx. The inferior pole of the right renal pelvis was accessed using a Chiba 22-gauge, 15 cm needle under fluoroscopic guidance. A nitinol wire was advanced through the Chiba needle into the proximal ureter. The Chiba needle was removed and an AccuStick catheter was advanced over the nitinol wire into the right renal pelvis. A small amount of contrast was injected and a nephrostogram was obtained demonstrating the catheter to be in the renal pelvis. The nitinol wire was removed and a Glidewire was advanced so that its tip was in the urinary bladder. The AccuStick catheter was exchanged over the wire for a STEPHEN-1 catheter, which was then advanced so that its tip was in the urinary bladder. The wire was removed. A real estate asset manager film was taken to document location of the STEPHEN-1 catheter and to rule out any immediate complications. The catheter was capped and sutured to the skin with 2-0 Silk. Procedure done under fluoroscopic guidance. Left kidney: Contrast was injected through the existing PCN and nephrostogram was performed. This revealed nondilated collecting system and multiple stones. The existing PCN passes through the upper pole to the renal pelvis. The inferior pole of the left renal pelvis was accessed using a Chiba 22-gauge, 15 cm needle under fluoroscopic guidance. A nitinol wire was advanced through the Chiba needle into the inferior calyx . The Chiba needle was removed and an AccuStick catheter was advanced over the nitinol wire into the inferior calyx and could not pass to the pelvis due to the pelvic stone. The nitinol wire was removed and a Glidewire was advanced and could not pass beyond the renal pelvic stone. The AccuStick catheter was exchanged over the wire for a STEPHEN-1 catheter, which was then advanced so that its tip was in the renal pelvis. The wire was removed. A real estate asset manager film was taken to document location of the STEPHEN-1 catheter and to rule out any immediate complications. The catheter was capped and sutured to the skin with 2-0 Silk. Procedure done under fluoroscopic guidance. The patient tolerated the procedure well. There were no complications. Dr. Knight performed the entire procedure. Dr. Sorto assisted. Procedure Note Henrique, Incoming Imaging Results - MonJan 18, 2017 2:49 PM CDT PROCEDURE: Bilateral percutaneous nephrostomy tube placement for PCNL access. CLINICAL INDICATION: 71 year old with hx of bilateral staghorn stones, right abscess vs subcapsular hematoma. Status post bilateral PCNs by Interventional Radiology on 11/30/16. Here for PCN placement for PCNL access. ACCESS: bilateral flank VESSELS INJECTED: None SPECIMENS COLLECTED: None CONTRAST: 80 ml Isovue 370 in the collecting systems ANESTHESIA: 1% lidocaine MEDICATIONS: 6 mg Versed IV, 300 mcg Fentanyl IV, 1 g Rocephin IV. PHYSICIANS: Dr. Knight DATA OFFICER: Dr. Sorto COMPLICATIONS: None immediate BLOOD LOSS: Minimal FLUORO TIME: 31.7 min FLUORO DOSE: 1058 mGy SEDATION START TIME: 1048 SEDATION STOP TIME: 1200 PROCEDURE: Informed consent was obtained after a detailed discussion outlining the risks, benefits, and alternatives to the procedure and after all of the patient's questions were answered. The patient was brought to the interventional suite and placed in the prone position. A formal timeout was performed. Both flanks were prepped and draped in usual sterile fashion. Right kidney: Contrast was injected through the existing PCN and nephrostogram was performed. This revealed nondilated collecting system and multiple stones. The PCN is intercostal course and concerning for transpleural placement. Existing PCN is in the superior calyx. The inferior pole of the right renal pelvis was accessed using a Chiba 22-gauge, 15 cm needle under fluoroscopic guidance. A nitinol wire was advanced through the Chiba needle into the proximal ureter. The Chiba needle was removed and an AccuStick catheter was advanced over the nitinol wire into the right renal pelvis. A small amount of contrast was injected and a nephrostogram was obtained demonstrating the catheter to be in the renal pelvis. The nitinol wire was removed and a Glidewire was advanced so that its tip was in the urinary bladder. The AccuStick catheter was exchanged over the wire for a STEPHEN-1 catheter, which was then advanced so that its tip was in the urinary bladder. The wire was removed. A real estate asset manager film was taken to document location of the STEPHEN-1 catheter and to rule out any immediate complications. The catheter was capped and sutured to the skin with 2-0 Silk. Procedure done under fluoroscopic guidance. Left kidney: Contrast was injected through the existing PCN and nephrostogram was performed. This revealed nondilated collecting system and multiple stones. The existing PCN passes through the upper pole to the renal pelvis. The inferior pole of the left renal pelvis was accessed using a Chiba 22-gauge, 15 cm needle under fluoroscopic guidance. A nitinol wire was advanced through the Chiba needle into the inferior calyx . The Chiba needle was removed and an AccuStick catheter was advanced over the nitinol wire into the inferior calyx and could not pass to the pelvis due to the pelvic stone. The nitinol wire was removed and a Glidewire was advanced and could not pass beyond the renal pelvic stone. The AccuStick catheter was exchanged over the wire for a STEPHEN-1 catheter, which was then advanced so that its tip was in the renal pelvis. The wire was removed. A real estate asset manager film was taken to document location of the STEPHEN-1 catheter and to rule out any immediate complications. The catheter was capped and sutured to the skin with 2-0 Silk. Procedure done under fluoroscopic guidance. The patient tolerated the procedure well. There were no complications. Dr. Knight performed the entire procedure. Dr. Sorto assisted. IMPRESSION IMPRESSION: 1. Right: successful placement of 5 Fr JB1 catheter through inferior calyx with tip in the bladder. The existing PCN is in the upper pole calyx. 2. Left: successful placement of 5 Fr JB1 catheter in the inferior calyx with tip in the renal pelvis. Could not pass the catheter beyond the pelvic stone. Another JB1 catheter was placed through the middle calyx passes over the pelvic stone with tip in the bladder. The existing PCN within the renal pelvis through the upper calyx. Findings were discussed with Dr. Love via pager [phone] on 01/18/17. TYPE AND SCREEN (BLOOD TYPE(ABORH) AND RBC ANTIBODY SCREEN) (01/18/2017 8:36 AM ) Component Value Range ABORH A Positive Specimen Expiration Date 2017-01-21 Antibody Screen Negative Specimen Blood SOLUBLE TRANSFERRIN RECEPTOR (12/30/2016 12:19 PM) Component Value Range Soluble Transferrin Receptor 4.7(H) 1.9-4.4 mg/L Specimen Blood FERRITIN (12/30/2016 12:19 PM) Component Value Range Ferritin 126.4 13.0-150.0 ng/mL Specimen Blood IRON PANEL (IRON, TRANSFERRIN, TIBC AND % SATURATION) (12/30/2016 12:19 PM) Component Value Range Iron, Blood 43 37-145 g/dL Transferrin 271 200-360 mg/dL Iron % Saturation 11(L)Comment: 15-50 % Iron % saturation is a calculated parameter derived from the iron and transferrin plasma concentrations. Iron % saturation is not reliable when there are high ferritin concentrations greater than 1,200 ng/mL. TIBC (Total Iron Binding Capacity) 388Comment: 250-425 g/dL TIBC is a calculated parameter derived from the transferrin plasma concentration. Specimen Blood POTASSIUM (12/30/2016 12:19 PM) Component Value Range Potassium 4.3 3.5-5.0 mEq/L Specimen Blood SODIUM (12/30/2016 12:19 PM) Component Value Range Sodium 140 135-145 mEq/L Specimen Blood CREATININE (12/30/2016 12:19 PM) Component Value Range Creatinine 1.4(H)Comment: 0.5-1.0 mg/dL Creatinine switched to enzymatic method on 02/08/2011.GFR equation switched to IDMS-traceable MDRD equation on 02/08/2011. Calculated GFR values are not valid in clinical settings where serum creatinine is changing. Calculated GFR 37(L) >60 mL/min/1.73 m2 Specimen Blood CO2 (12/30/2016 12:19 PM) Component Value Range CO2 23 22-29 mEq/L Anion Gap 16 8-18 mEq/L Specimen Blood CHLORIDE (12/30/2016 12:19 PM) Component Value Range Chloride 101 95-107 mEq/L Specimen Blood BLOOD UREA NITROGEN (12/30/2016 12:19 PM) Component Value Range BUN 17 10-20 mg/dL Specimen Blood URINE CULTURE, ROUTINE AEROBIC (12/30/2016 12:13 PM)Only the most recent of3 resultswithin the time period is included. Component Value Range Quantitative Culture >100,000 CFU/mL Klebsiella pneumoniae(A)Comment:Susceptibility testing was not performed. See for susceptibility of same isolate(s). For further details, call . Quantitative Culture >100,000 CFU/mL Vancomycin Resistant Enterococcus faecium(A)Comment:Susceptibility testing was not performed. See for susceptibility of same isolate(s). For further details, call . Quantitative Culture 10,000-100,000 CFU/mL Pseudomonas aeruginosa(A)Comment:Susceptibility testing was not performed. See for susceptibility of same isolate(s). For further details, call 349. Specimen Culture - Nephrostomy Narrative Identification performed by MALDI-TOF mass spectrometry (MS).The performance characteristics of MALDI-TOF MS were determined by the [facility].It has not been cleared orApproved by the FDA. The FDA has determined that such clearance or approval is not necessary.This test is for clinical purposes. It should not be regarded as investigational or for research.The laboratory is certified under the Clinical Laboratory Improvement Amendments of 1988 (CLIA) as qualified to perform high complexity clinical laboratory testing.
[2017-03-10] MEDS ORDERED: RINGERS SOLUTION,LACTATED 1,000 ML IV ONE ×2 (11:00→11:20)
--- NOTE | 2017-03-10 12:12 | OR ---
Operative Report - Dictated Report Narrative: Date 03/10/2017 Preoperative diagnosis: Screening for colon cancer Postoperative diagnosis: Sigmoid diverticulosis Procedure: Total colonoscopy Staff surgeon: Itz Jorgensen MD Anesthesia: Mac per NUTRITION ASSOCIATE EBL: None Specimens: None Description: After informed consent and appropriate sedation the patient was placed in the left lateral decubitus position. A flexible fiberoptic video colonoscope was introduced and advanced under direct vision without difficulty to the cecum. Usual landmarks were identified. Preparation was excellent and excellent views were obtained. The findings were of a normal cecum,, ascending colon, hepatic flexure, transverse colon, splenic flexure, descending colon, sigmoid colon, and rectum. The mucosal collar, vasculature, and texture were normal throughout. No suspicious masses were seen. We did see one small diverticulum in the sigmoid colon. The patient tolerated the procedure well without apparent complications and was discharged from the endoscopy suite in stable condition.
[2017-03-10 12:57] VITALS: BP 152/80
== END 2017-03-10 10:10 | disposition home or self-care (01) ==
LOC: AMB 10:09
PROVIDERS: ATTEND Specialist
PROC: 0DJD8ZZ Inspection of Lower Intestinal Tract, Via Natural or Artificial Opening Endoscopic (ICD-10-PCS; principal; 2017-03-10 11:10)
DX: Z12.11 Encounter for screening for malignant neoplasm of colon (principal); K57.30 Diverticulosis of large intestine without perforation or abscess without bleeding; Z87.891 Personal history of nicotine dependence; Z68.30 Body mass index [BMI] 30.0-30.9, adult